=== PATIENT | male | born 1950 | race Caucasian/White ===

== ENCOUNTER → 2017-06-22 | Day surgery (SDC) | payer OTHER, MEDICARE ==
[~2017-06-22] VITALS: Ht 175.3 cm; Wt 81.8 kg
[~2017-06-22] MED LIST: AMOX500C3 PO; BACITRACIN 50000 UNIT VIAL ONE; BUPIVACAINE 0.5 % 5 MG/1 ML MPF 30ML VIAL ONE; CEFAZOLIN 1000MG/55 ML D5W IV SCH; CHOLTAB3 PO; CMD5 PO; ENOX80IN SC; FENTANYL CITRATE INJ 50 MCG/1 ML 2 ML VIAL ONE; GEMF600T3 PO; HYDR25SU20 PR; KRIL1CAP7; LACTATED RINGER'S 1000ML 1,000 ML IV SCH; LIDOCAINE HCL 1% 20 ML VIAL ONE; LISI5TAB3 PO; LUTE20TA PO; MIDAZOLAM HCL 5 MG/ML 1 ML VIAL ONE; MULT-618 PO; OMEG10007 PO; PRAV40TA2 PO; WARF7.5T PO
[2017-06-22 09:23] VITALS: BP 166/76; PULSE 65; TEMP 36.6; Ht 175.3 cm; Wt 81.8 kg
--- NOTE | 2017-06-22 09:57 | History & Physical Bridge Note ---
H&P Re-Evaluation Bridge Note: I have examined the patient, reviewed the History & Physical and in the interval since the performance of the History & Physical I have noted the following changes of clinical significance: No changes noted
--- NOTE | 2017-06-22 09:58 | Procedure Note ---
Pre-Mod Sedation Assessment General Date of Moderate Sedation: Jun 22, 2017. Vital Signs: Vital Signs Past 12 Hours Date Time Temp Pulse Resp B/P (MAP) Pulse Ox O2 Delivery O2 Flow Rate FiO2 06/22/17 09:23 36.6 65 18 166/76 (106) Room Air Review Cardiovascular: regular rate, rhythm Abdomen: soft Lungs: lungs clear Airway Class: II Pre-Sedation Airway Assessment Oral Cavity: Capped Teeth Short Thick Neck: No Hx of Sleep Apnea: No Smoking Status: Former Smoker Mallampati Classification: Class II ASA Classification: Class II Procedure Planning Contraindications-for Mod Sed: None Yes Notes The planned sedation has been discussed with the patient and consent obtained. I have identified the patient, determined the appropriateness of sedation and have assessed the patient immediately prior to the procedure. All medicine(s) and interventions are by my order.
--- NOTE | 2017-06-22 11:22 | [facility] Post Operative Brief Note ---
Immediate Operative Summary Operative Date Jun 22, 2017. Pre-Operative Diagnosis NICM, BIV ICD AT CHELSEY Post-Operative Diagnosis SAME Procedure(s) Performed BIVENTRICULAR RATE RESPONISIVE ICD GENERATOR CHANGE Surgeon LUIS CARLOS ARTEAGA Pump Erector Helper Surgeon(s) NONE Estimated Blood Loss <5CC Findings SEE OFFICIAL REPORT Fluids (cc crystalloids) 200CC Specimens NONE Drains NONE Anesthesia 3MG VERSED AND 75MCG FENTATNYL Complication(s) None Disposition PCU
--- NOTE | 2017-06-22 11:22 | Procedure Note ---
Post-Mod Sedation Assessment General Date of Moderate Sedation Jun 22, 2017. Vital Signs: Vital Signs Past 12 Hours Date Time Temp Pulse Resp B/P (MAP) Pulse Ox O2 Delivery O2 Flow Rate FiO2 06/22/17 11:10 66 18 109/68 (82) 99 Mask 3 06/22/17 09:23 36.6 65 18 166/76 (106) Room Air Review - Discharge Criteria Vital Signs Stable: Yes Alert/Oriented/Conversant: Yes Returned to Baseline Mental St: Yes Nausea Absent/Minimal: Yes Pain/Discomfort/Absent/Minimal: Yes Normal/Baseline Respirations: Yes Active Bleeding?: No Pt Received D/C Instructions: N/A Prescriptions Given: None Specific Proced. D/C Criteria Distal Pulses Present (Cardiac: N/A Groin site assessed-Card Cath: N/A Voided Prior To Discharge: N/A Discharged Patients Adult Escort/Transportation: N/A
--- NOTE | 2017-06-22 11:25 | Discharge Instructions ---
Discharge Instructions Date of Service Jun 22, 2017. Visit Reason for Visit: Non-Ischemic Cardiomyopathy Discharge Discharge Diagnosis / Problem: NICM, BIV ICD AT CHELSEY Discharge Goals Goal(s): Improve function Activity Recommendations Activity Limitations: as noted below Lifting Limitations: no more than 10 pounds Shower/Bathe: may shower/bathe in 3 days Driving or Machine Use: resume 1 day after discharge Anesthesia . Post Anesthesia Instructions: If you have had General Anesthesia or IV Sedation: * Do not drive today. * Resume driving when surgeon permits. * Do not make important decisions or sign legal documents today. * Call surgeon for: 1. Temperature elevations greater than 101 degrees F. 2. Uncontrollable pain. 3. Excessive bleeding. 4. Persistent nausea and vomiting. 5. Medication intolerance (nausea, vomiting or rash). * For nausea and vomiting use only clear liquids such as: tea, soda, bouillon until nausea subsides, then gradually increase diet as tolerated. * If you have any concerns or questions, call your surgeon's office. If physician is unavailable and it is an emergency, call 911 or go to the nearest emergency room. . Instructions / Follow-Up Instructions / Follow-Up ACTIVITY RECOMMENDATIONS: * Do not raise affected arm over head for 2 weeks. SPECIAL CARE INSTRUCTIONS: * If bleeding occurs, apply direct pressure to area for 5 minutes. * Call your doctor if you have severe pain, fever, drainage or bleeding at site. * Keep dressing on and dry for 48 hours then remove. * Keep any scheduled doctor's appointment. * Implant Card - hand held device with website information given. SKIN IRRITATION: * You may experience some redness and/or swelling in the area where radiation was administered. If any skin irritation occurs, please contact your family physician. FOLLOW UP VISIT: Keep any scheduled doctor appointments. Diet Recommendations Recommended Home Diet: resume previous diet Procedures Procedures Performed: BIVENTRICULAR RATE RESPONISIVE ICD GENERATOR CHANGE Pending Studies Studies pending at discharge: no Medical Emergencies . Who to Call and When: Medical Emergencies: If at any time you feel your situation is an emergency, please call 911 immediately. . Non-Emergent Contact Non-Emergency issues call your: [employer] . . "Provider Documentation" section prepared by Katja Seaman. .
[2017-06-22 11:30] VITALS: BP 133/49; PULSE 65; TEMP 36.7; O2SAT 98
[2017-06-22 12:00] VITALS: BP 118/64; PULSE 60; TEMP 36.7; O2SAT 96
--- NOTE | 2017-06-22 23:12 | OPERATIVE REPORT ---
DATE OF OPERATION: 06/22/2017 PREOPERATIVE DIAGNOSES: Nonischemic cardiomyopathy, biventricular implantable cardioverter defibrillator at elective replacement indicator. POSTOPERATIVE DIAGNOSIS: Same. PROCEDURE: Biventricular rate responsive implantable cardiac defibrillator generator change. SURGEON: Katja Seaman DO INTELLECTUAL PROPERTY MANAGER: None. ANESTHESIA: Monitored conscious sedation administered under my supervision by Pedro Merino. Start time 10:40 and end time 11:10, total of 3 mg of Versed and 75 mcg of fentanyl. INTRAVENOUS FLUIDS: 200 mL. ANTIBIOTICS: 1 gram of Ancef. COMPLICATIONS: None. CONDITION: Stable. URINE OUTPUT: N/A SPECIMENS: None. BLOOD LOSS: Less than 5 mL. DRAINS: None. FINDINGS: See below. INDICATIONS: This is a 67-year-old gentleman who has a past medical history of nonischemic cardiomyopathy in which he underwent a biventricular implantable cardiac defibrillator back in January 2013, aortic stenosis status post TAVR, hypertension, hyperlipidemia. On his most recent battery defibrillator check, he was found to hit CHELSEY and was recommended a device change. CONSENT: Consent was obtained prior to the patient going into the electrophysiology lab. The patient was informed of risks, benefits, alternatives to the procedure. Risks include but are not limited to sudden cardiac , cardiac arrhythmias, cerebrovascular accident, myocardial infarction, bleeding and infection. The patient understood these risks and agreed to the procedure as planned. Informed consent was obtained. DESCRIPTION OF THE PROCEDURE: The patient was brought into the electrophysiology lab in a fasting state. He was connected to continuous cardiac monitoring. A timeout was performed to ensure patient's identity and procedure correctly. The patient received prophylactic antibiotics prior to incision. He was prepped and draped over the left infraclavicular space in normal surgical standard fashion. Monitored conscious sedation was given throughout the procedure for patient's comfort level under my supervision. [place] precautions were maintained throughout the procedure. A 15 mL of 1% lidocaine, bupivacaine mixture were given over the prior surgical incision. Incision was made over the prior surgical incision. Blunt dissection was performed down to the prior generator. The capsule was freed using iris scissors and the generator was ultimately freed from the capsule. The leads were detached from the old generator and tested intraoperatively, see below for results. The capsule was disrupted inferiorly and caudally to allow for a new blood flow. The new defibrillator generator was attached to the leads making sure that the pins were in appropriate position, passed the set screws and the set screws were all tightened. The new generator was then placed in the pocket, making sure that the leads were lying flat beneath the device. Julienne stat was placed in the pocket as the patient is on Coumadin. The incision was closed in a 3-layer fashion using a 2-0 Vicryl interrupted suture followed by a 3-0 Vicryl interrupted suture followed by a 4-0 Monocryl running stitch and Dermabond was applied followed by a pressure dressing. EQUIPMENT: 1. Explanted generator Protecta XT HYDRO OPERATOR-D, model #[id number], serial #[id number], implanted 01/16/2013 with the CHELSEY of 05/26/2017. 2. New generator, the Teikon MRI HYDRO OPERATOR-D SureScan, model #[id number], serial #[id number]. 3. Right atrial lead model 76 - 52 cm, serial #[id number], implanted 01/16/2013. 4. Right ventricular lead 6935 - 65, serial #[id number], implanted 01/16/2013. 5. Left ventricular lead 4296 - 88 cm, serial [id number], implanted 01/16/2013. INTRAOPERATIVE TESTIN. Right atrial lead: P-wave 4 millivolts, impedance 505 volts, threshold 0.4 volts at 0.6 milliamps. 2. Right ventricular lead: R-wave is 9.6 millivolts, impedance 782 ohms, threshold 0.5 volts at 0.5 milliamps. 3. Left ventricular lead: Programmed on LV tip to RV coil, impedance 718 ohms, threshold 1.8 volts at 2.6 milliamps. Final Measurements through the device. 1. Right atrial lead: P-wave is 3.9 millivolts, impedance 456 ohms, threshold 0.5 volts at 0.4 milliseconds. 2. Right ventricular lead: R-wave 11.1 millivolts, impedance 703 ohms, threshold 0.5 volts at 0.4 milliseconds. 3. Left ventricular lead: Programmed LV tip to RV coil, impedance 646 ohms, and threshold 2 volts at 0.4 milliseconds. 4. Right ventricular coil - impedance of 82 ohms. FINAL PARAMETERS: DDDR 60/120. Right atrial and right ventricular amplitude 1.5 volts, pulse width 0.4 milliseconds, sensitivity 0.3 millivolts. Left ventricular amplitude 2.5 volts, pulse width 0.4 milliseconds. VF 188 beats per minute 24/32 intervals, VT zone 140, VT monitor zone 140 beats per minute, detection interval 28. IMPRESSION: Successful biventricular rate responsive generator change due to nonischemic cardiomyopathy and device at elective replacement indicator. PLAN: Monitor patient post-sedation. He is to keep the pressure dressing on for 2 days. He can continue his home medicines including his Coumadin. He is not to do any heavy lifting for 2 weeks of more than 10 pounds left arm. He should follow up in our [place] [facility] office in 7-10 days for device and wound check. I attest to the content of the Intraoperative Record and any orders documented therein. Any exceptions are noted below. LAUREL
== END | disposition home or self-care (01) ==
LOC: C.ACU 08:24
PROVIDERS: ATTEND Internal Medicine
DX: I42.9 Cardiomyopathy, unspecified (principal); I67.2 Cerebral atherosclerosis; I10 Essential (primary) hypertension; E78.5 Hyperlipidemia, unspecified; Z95.2 Presence of prosthetic heart valve; Z86.73 Personal history of transient ischemic attack (TIA), and cerebral infarction without residual deficits; Z95.810 Presence of automatic (implantable) cardiac defibrillator; Z80.3 Family history of malignant neoplasm of breast; Z79.01 Long term (current) use of anticoagulants; Z87.891 Personal history of nicotine dependence